=== PATIENT | female | born 1965 | race African-American/Black ===

== ENCOUNTER → 2016-02-25 | Outpatient (CLI) | payer MEDICARE, MEDICAID ==
[~2016-02-25] MED LIST: ADIPEX-P37.5 MG PO; CEPHALEXIN500 M1 PO; COZAAR 50MG50 MG/TAB PO; CYMBALTA 60MG60 MG PO; DESYREL 100MG100 MG PO; DESYREL DIVIDO150 M1 PO; HCTZ 25MG TAB25 MG PO; HYZAAR 50-12.1 UDTAB PO; KLONOPIN 0.5MG0.5 MG PO; LAMICTAL 100MG100 MG PO; LORTAB 7.5/5001 TAB PO; MICROZIDE12.5 MG PO; MULTIPLE VITAMI1 CAP PO; NO HOME MEDICATIONS; NORCO 325 MG-51 TAB PO; NORCO 325 MG-7.1 TAB PO; PERCOCET 325 MG1 TA2 PO; PERCOCET 325 MG1 TAB PO; PHENERGAN 25 TA25 MG PO; PROBIOTIC FORMU1 CAP PO; PROMETHAZINE12.5 M5 PO; REMERON 15M15 MG/TA1 PO; ULTRAM 50MG TAB50 MG PO; VICTOZA6 MG/ML SQ; VIT B 12; VITAMIN D31000 I1 PO; WELLBUTRIN XL150 MG PO; WELLBUTRIN XL300 M1 PO; ZANAFLEX CAPSULE4 MG PO; ZOFRAN 4MG T4 MG/TAB PO
== END ==
LOC: BHSO 10:18
DX: F06.32 Mood disorder due to known physiological condition with major depressive-like episode (principal)

== ENCOUNTER 2016-04-07 10:30 | Outpatient (RCR) | payer MEDICARE, MEDICAID ==
[~2016-04-07 10:30] MED LIST changes: -VICTOZA6 MG/ML SQ
== END 2016-04-12 08:24 | disposition home or self-care (01) ==
LOC: WSPT 10:30
DX: M25.562 Pain in left knee (principal); M25.561 Pain in right knee; M25.572 Pain in left ankle and joints of left foot; M25.571 Pain in right ankle and joints of right foot
CPT/HCPCS: G8978-GP; G8979-GP; G8980-GP

== ENCOUNTER → 2016-05-03 | Outpatient (CLI) | payer MEDICARE, MEDICAID ==
[~2016-05-03] MED LIST changes: +VICTOZA6 MG/ML SQ
== END ==
LOC: BHSO 10:30
DX: F06.32 Mood disorder due to known physiological condition with major depressive-like episode (principal)

== ENCOUNTER 2016-05-18 14:30 | Emergency (ER) | payer MEDICARE, MEDICAID ==
[~2016-05-18] VITALS: Ht 177.8 cm; Wt 110.0 kg
[~2016-05-18 14:30] MED LIST changes: -VICTOZA6 MG/ML SQ
[2016-05-18 14:32] VITALS: TEMP 98.8
[2016-05-18] MEDS ORDERED: VICTOZA6 MG/ML SQ (14:38)
[2016-05-18 17:12] VITALS: BP 127/86; PULSE 89
== END 2016-05-18 17:15 | disposition home or self-care (01) ==
LOC: COL.ER 14:30
DX: M25.562 Pain in left knee (principal); M54.5 Low back pain; W18.2XXA Fall in (into) shower or empty bathtub, initial encounter; Y92.002 Bathroom of unspecified non-institutional (private) residence as the place of occurrence of the external cause; I10 Essential (primary) hypertension; E11.9 Type 2 diabetes mellitus without complications; Z79.84 Long term (current) use of oral hypoglycemic drugs
CPT/HCPCS: J1170; J3360

== ENCOUNTER → 2016-06-20 | Outpatient (CLI) | payer MEDICARE, MEDICAID ==
[~2016-06-20] MED LIST changes: +VICTOZA6 MG/ML SQ
== END ==
LOC: COL.RAD 13:08
DX: S46.812A Strain of other muscles, fascia and tendons at shoulder and upper arm level, left arm, initial encounter (principal); M75.82 Other shoulder lesions, left shoulder; M77.8 Other enthesopathies, not elsewhere classified; S43.431A Superior glenoid labrum lesion of right shoulder, initial encounter
CPT/HCPCS: A9585; Q9967

== ENCOUNTER → 2016-08-02 | Outpatient (CLI) | payer MEDICARE, MEDICAID | LOC: BHSO 11:02 | DX: F06.32 Mood disorder due to known physiological condition with major depressive-like episode (principal) ==

== ENCOUNTER → 2016-09-01 | Outpatient (CLI) | payer MEDICARE, MEDICAID | LOC: BHSO 14:48 | DX: F06.32 Mood disorder due to known physiological condition with major depressive-like episode (principal) ==

== ENCOUNTER → 2016-10-06 | Outpatient (RCR) | payer MEDICARE, MEDICAID | END | disposition home or self-care (01) | LOC: MKS.ESL.PT | DX: Z01.818 Encounter for other preprocedural examination (principal); M25.512 Pain in left shoulder | CPT/HCPCS: G0283-GP; G8982-GP; G8984-GP; G8985-GP; G8986-GP ==

== ENCOUNTER → 2016-11-09 | Outpatient (CLI) | payer MEDICARE, MEDICAID | LOC: BHSO 13:39 | DX: F06.32 Mood disorder due to known physiological condition with major depressive-like episode (principal) ==

== ENCOUNTER 2017-01-02 14:00 | Outpatient (RCR) | payer MEDICARE, MEDICAID | END 2017-01-10 | LOC: MKS.ESL.PT | DX: Z47.89 Encounter for other orthopedic aftercare (principal); M75.22 Bicipital tendinitis, left shoulder; Z98.890 Other specified postprocedural states | CPT/HCPCS: G8984-GP; G8985-GP ==

== ENCOUNTER → 2017-01-18 | Outpatient (CLI) | payer MEDICARE, MEDICAID | LOC: BHSO 13:35 | DX: F06.32 Mood disorder due to known physiological condition with major depressive-like episode (principal) ==

== ENCOUNTER 2017-01-25 13:15 | Outpatient (RCR) | payer MEDICARE, MEDICAID ==
[2017-02-02] MEDS ORDERED: OCUFLOX OPHTH DR5 ML OU (12:23)
[2017-02-02] MEDS ORDERED: AMOXICILLIN 8751 TAB PO (12:23)
[2017-02-02] MEDS ORDERED: BUSPAR5 MG PO (12:39)
[2017-02-02] MEDS ORDERED: KLONOPIN 1MG1 MG PO (12:40)
== END 2017-04-11 | disposition home or self-care (01) ==
LOC: MKS.ESL.PT
DX: Z51.89 Encounter for other specified aftercare (principal)
CPT/HCPCS: G8985-GP; G8986-GP

== ENCOUNTER 2017-02-02 11:41 | Emergency (ER) | payer MEDICARE, MEDICAID ==
[~2017-02-02] VITALS: Ht 177.8 cm; Wt 110.5 kg
[2017-02-02 11:43] VITALS: BP 169/99; TEMP 98.4
[2017-02-02] MEDS ORDERED: OCUFLOX OPHTH DR5 ML OU (12:23)
[2017-02-02] MEDS ORDERED: AMOXICILLIN 8751 TAB PO (12:23)
[2017-02-02] MEDS ORDERED: BUSPAR5 MG PO (12:39)
[2017-02-02] MEDS ORDERED: KLONOPIN 1MG1 MG PO (12:40)
[2017-02-02 12:42] VITALS: PULSE 83
== END 2017-02-02 12:43 | disposition home or self-care (01) ==
LOC: COL.ER 11:41
DX: J32.9 Chronic sinusitis, unspecified (principal); H10.9 Unspecified conjunctivitis; E11.9 Type 2 diabetes mellitus without complications; I10 Essential (primary) hypertension; M54.9 Dorsalgia, unspecified; M25.561 Pain in right knee; M25.562 Pain in left knee; G89.29 Other chronic pain; Z79.84 Long term (current) use of oral hypoglycemic drugs

== ENCOUNTER 2017-04-24 15:35 | Emergency (ER) | payer MEDICARE, MEDICAID ==
[~2017-04-24] VITALS: Ht 177.8 cm; Wt 108.6 kg
[~2017-04-24 15:35] MED LIST changes: +AMOXICILLIN 8751 TAB PO; +BUSPAR5 MG PO; +KLONOPIN 1MG1 MG PO; +OCUFLOX OPHTH DR5 ML OU
[2017-04-24 15:40] VITALS: BP 135/85; TEMP 97.9
[2017-04-24] MEDS ORDERED: TRULICITY1.5 MG/0.5 SQ (15:53)
[2017-04-24] MEDS ORDERED: NEURONTIN400 MG/CAP PO (15:56)
[2017-04-24] MEDS ORDERED: NORCO 325 MG-7.1 TAB PO (15:56)
[2017-04-24] MEDS ORDERED: B-121000 MCG PO (15:57)
[2017-04-24] MEDS ORDERED: FLEXERIL 1010 MG/TAB PO ×2 (16:30)
[2017-04-24 16:48] VITALS: PULSE 61
== END 2017-04-24 16:49 | disposition home or self-care (01) ==
LOC: COL.ER 15:35
DX: G89.29 Other chronic pain (principal); M54.5 Low back pain; I10 Essential (primary) hypertension; E11.9 Type 2 diabetes mellitus without complications; F31.9 Bipolar disorder, unspecified; F17.210 Nicotine dependence, cigarettes, uncomplicated

== ENCOUNTER → 2017-05-18 | Outpatient (CLI) | payer MEDICARE, MEDICAID ==
[~2017-05-18] MED LIST changes: +B-121000 MCG PO; +FLEXERIL 1010 MG/TAB PO; +NEURONTIN400 MG/CAP PO; +TRULICITY1.5 MG/0.5 SQ
== END ==
LOC: BHSO 09:00
DX: F06.32 Mood disorder due to known physiological condition with major depressive-like episode (principal)
CPT/HCPCS: G0463

== ENCOUNTER 2017-06-21 16:00 | Outpatient (RCR) | payer MEDICARE, MEDICAID | END 2017-06-22 09:03 | disposition home or self-care (01) | LOC: MKS.ESL.PT 16:00 | DX: M19.90 Unspecified osteoarthritis, unspecified site (principal); M54.5 Low back pain; G89.4 Chronic pain syndrome; M25.551 Pain in right hip; M25.552 Pain in left hip | CPT/HCPCS: G8978-GP; G8979-GP; G8980-GP ==

== ENCOUNTER → 2017-07-04 | Outpatient (CLI) | payer MEDICARE, MEDICAID | LOC: BHSO 10:45 | DX: F06.32 Mood disorder due to known physiological condition with major depressive-like episode (principal) | CPT/HCPCS: G0463 ==

== ENCOUNTER → 2017-09-13 | Outpatient (CLI) | payer MEDICARE, MEDICAID | LOC: BHSO 13:02 | DX: F31.81 Bipolar II disorder (principal) | CPT/HCPCS: G0463 ==

== ENCOUNTER → 2017-09-26 | Outpatient (CLI) | payer MEDICARE, MEDICAID | LOC: BHSO 11:26 | DX: F06.32 Mood disorder due to known physiological condition with major depressive-like episode (principal) | CPT/HCPCS: G0463 ==

== ENCOUNTER → 2017-11-08 | Outpatient (CLI) | payer MEDICARE, MEDICAID ==
[~2017-11-08] MED LIST changes: +ALDACTONE 25MG25 M1 PO; +CALTRATE-600 W600 MG PO; +FLONASEALLERGY NS; +IRON TABLETS325 MG PO; +MYRBETR50MG PO; +SINGULAIR 110 MG/TAB PO; +TOPAMAX50 MG PO
== END ==
LOC: BHSO 10:54
DX: F06.32 Mood disorder due to known physiological condition with major depressive-like episode (principal)
CPT/HCPCS: G0463

== ENCOUNTER → 2017-11-10 | Outpatient (CLI) | payer MEDICARE, MEDICAID ==
[~2017-11-10] MED LIST changes: +GLUCOPHAGE XR500 M1 PO; -MICROZIDE12.5 MG PO
== END ==
LOC: MC.RAD 09:00
DX: Z12.31 Encounter for screening mammogram for malignant neoplasm of breast (principal)

== ENCOUNTER → 2017-11-14 | Outpatient (CLI) | payer MEDICARE, MEDICAID ==
[~2017-11-14] VITALS: Ht 172.7 cm; Wt 114.8 kg
[2017-11-14 14:18] VITALS: BP 120/80; PULSE 72
== END ==
LOC: LIGHT
DX: M15.9 Polyosteoarthritis, unspecified (principal); I10 Essential (primary) hypertension; F32.9 Major depressive disorder, single episode, unspecified; E66.9 Obesity, unspecified; Z68.38 Body mass index [BMI] 38.0-38.9, adult; Z71.3 Dietary counseling and surveillance
CPT/HCPCS: G0463

== ENCOUNTER 2017-11-20 09:15 | Outpatient (RCR) | payer MEDICARE, MEDICAID | END 2017-11-20 13:46 | disposition home or self-care (01) | LOC: MKS.ESL.PT 09:15 | DX: G89.4 Chronic pain syndrome (principal); M54.42 Lumbago with sciatica, left side; M25.552 Pain in left hip | CPT/HCPCS: G8978-GP; G8979-GP; G8980-GP ==

== ENCOUNTER → 2017-11-20 | Outpatient (CLI) | payer MEDICARE, MEDICAID | LOC: LIGHT 12:59 | DX: F32.9 Major depressive disorder, single episode, unspecified (principal); I10 Essential (primary) hypertension; M15.9 Polyosteoarthritis, unspecified; E66.9 Obesity, unspecified; Z68.38 Body mass index [BMI] 38.0-38.9, adult; Z71.3 Dietary counseling and surveillance ==

== ENCOUNTER → 2017-12-11 | Outpatient (CLI) | payer MEDICARE, MEDICAID | LOC: LIGHT 12-05 11:24 | DX: F32.9 Major depressive disorder, single episode, unspecified (principal); I10 Essential (primary) hypertension; M16.9 Osteoarthritis of hip, unspecified; E66.9 Obesity, unspecified; Z68.38 Body mass index [BMI] 38.0-38.9, adult; Z71.3 Dietary counseling and surveillance ==

== ENCOUNTER → 2017-12-19 | Outpatient (CLI) | payer MEDICARE, MEDICAID ==
[~2017-12-19] VITALS: Ht 172.7 cm; Wt 121.1 kg
[2017-12-19 15:51] VITALS: BP 120/84; PULSE 92
== END ==
LOC: LIGHT 09:19
DX: F32.9 Major depressive disorder, single episode, unspecified (principal); I10 Essential (primary) hypertension; M15.9 Polyosteoarthritis, unspecified; E66.9 Obesity, unspecified; Z68.41 Body mass index [BMI] 40.0-44.9, adult; Z71.3 Dietary counseling and surveillance
CPT/HCPCS: G0463

== ENCOUNTER → 2018-01-16 | Outpatient (CLI) | payer MEDICARE, MEDICAID ==
[~2018-01-16] VITALS: Ht 172.7 cm; Wt 122.5 kg
[2018-01-16 14:32] VITALS: BP 140/86; PULSE 80
== END ==
LOC: LIGHT 14:27
DX: F32.9 Major depressive disorder, single episode, unspecified (principal); I10 Essential (primary) hypertension; M15.9 Polyosteoarthritis, unspecified; E66.9 Obesity, unspecified; Z68.41 Body mass index [BMI] 40.0-44.9, adult; Z71.3 Dietary counseling and surveillance
CPT/HCPCS: G0463

== ENCOUNTER → 2018-02-05 | Outpatient (CLI) | payer MEDICARE, MEDICAID | LOC: BHSO 10:28 | DX: F06.32 Mood disorder due to known physiological condition with major depressive-like episode (principal) | CPT/HCPCS: G0463 ==

== ENCOUNTER → 2018-04-04 | Outpatient (CLI) | payer MEDICARE, MEDICAID | LOC: BHSO 13:09 | DX: F06.32 Mood disorder due to known physiological condition with major depressive-like episode (principal) | CPT/HCPCS: G0463 ==

== ENCOUNTER → 2018-04-23 | Outpatient (CLI) | payer MEDICARE, MEDICAID | LOC: COL.RAD 10:33 | DX: K76.0 Fatty (change of) liver, not elsewhere classified (principal); R63.5 Abnormal weight gain; Z98.84 Bariatric surgery status | CPT/HCPCS: Q9967 ==

== ENCOUNTER → 2018-05-31 | Outpatient (CLI) | payer MEDICARE, MEDICAID ==
[~2018-05-31] MED LIST changes: +OZEMPIC0.25 MG/0. SQ
== END ==
LOC: BHSO 13:50
DX: F06.32 Mood disorder due to known physiological condition with major depressive-like episode (principal)
CPT/HCPCS: G0463

== ENCOUNTER → 2018-07-05 | Outpatient (CLI) | payer MEDICARE, MEDICAID | LOC: BHSO 14:14 | DX: F06.32 Mood disorder due to known physiological condition with major depressive-like episode (principal) | CPT/HCPCS: G0463 ==

== ENCOUNTER → 2018-09-11 | Outpatient (CLI) | payer MEDICARE, MEDICAID ==
[~2018-09-11] VITALS: Ht 172.7 cm; Wt 120.9 kg
[2018-09-11 15:00] VITALS: BP 126/86; PULSE 72
== END ==
LOC: LIGHT 14:01
DX: F32.9 Major depressive disorder, single episode, unspecified (principal); I10 Essential (primary) hypertension; M15.9 Polyosteoarthritis, unspecified; E66.9 Obesity, unspecified; Z68.41 Body mass index [BMI] 40.0-44.9, adult; Z71.3 Dietary counseling and surveillance
CPT/HCPCS: G0463

== ENCOUNTER → 2018-10-01 | Outpatient (CLI) | payer MEDICARE, MEDICAID | LOC: BHSO 14:16 | DX: F06.32 Mood disorder due to known physiological condition with major depressive-like episode (principal) | CPT/HCPCS: G0463 ==

== ENCOUNTER → 2019-01-07 | Outpatient (CLI) | payer MEDICARE, MEDICAID | LOC: BHSO 13:09 | DX: F06.32 Mood disorder due to known physiological condition with major depressive-like episode (principal) | CPT/HCPCS: G0463 ==

== ENCOUNTER 2019-01-30 14:11 | Emergency (ER) | payer MEDICARE, MEDICAID ==
[~2019-01-30] VITALS: Ht 172.7 cm; Wt 118.2 kg
[2019-01-30 14:29] VITALS: BP 145/92
[2019-01-30 15:51] VITALS: PULSE 103
== END 2019-01-30 15:51 | disposition home or self-care (01) ==
LOC: COL.ER 14:11
DX: S61.216A Laceration without foreign body of right little finger without damage to nail, initial encounter (principal); Z23 Encounter for immunization; Z79.84 Long term (current) use of oral hypoglycemic drugs; W26.8XXA Contact with other sharp object(s), not elsewhere classified, initial encounter; Y92.009 Unspecified place in unspecified non-institutional (private) residence as the place of occurrence of the external cause

== ENCOUNTER → 2019-02-09 | Outpatient (CLI) | payer MEDICARE, MEDICAID ==
[2019-02-09 17:23] VITALS: BP 135/89; PULSE 91; TEMP 98.4
== END ==
LOC: COL.ER 17:13
DX: S61.216D Laceration without foreign body of right little finger without damage to nail, subsequent encounter (principal); X58.XXXD Exposure to other specified factors, subsequent encounter

== ENCOUNTER → 2019-03-12 | Outpatient (CLI) | payer MEDICARE, MEDICAID ==
[~2019-03-12] VITALS: Ht 172.7 cm; Wt 116.3 kg
[2019-03-12 14:35] VITALS: BP 114/70; PULSE 96
== END ==
LOC: LIGHT 13:51
DX: Z68.39 Body mass index [BMI] 39.0-39.9, adult (principal); I10 Essential (primary) hypertension; F32.9 Major depressive disorder, single episode, unspecified
CPT/HCPCS: G0463

== ENCOUNTER → 2019-04-08 | Outpatient (CLI) | payer MEDICARE, MEDICAID | LOC: BHSO 13:16 | DX: F06.32 Mood disorder due to known physiological condition with major depressive-like episode (principal) | CPT/HCPCS: G0463 ==

== ENCOUNTER 2019-04-25 10:30 | Outpatient (RCR) | payer MEDICARE, MEDICAID | END 2019-05-01 | disposition home or self-care (01) | LOC: WSC | DX: M17.0 Bilateral primary osteoarthritis of knee (principal); E66.9 Obesity, unspecified ==

== ENCOUNTER → 2019-06-27 | Outpatient (CLI) | payer MEDICARE, MEDICAID | LOC: BHSO 10:26 | DX: F41.1 Generalized anxiety disorder (principal) | CPT/HCPCS: G0463 ==

== ENCOUNTER → 2019-07-16 | Outpatient (CLI) | payer MEDICARE, MEDICAID ==
[~2019-07-16] VITALS: Ht 172.7 cm; Wt 120.0 kg
[~2019-07-16] MED LIST changes: -OZEMPIC0.25 MG/0. SQ; +TRULICITY0.75 MG/0. SQ
[2019-07-16 13:13] VITALS: BP 112/84; PULSE 88
== END ==
LOC: LIGHT 05-14 09:35
DX: E66.01 Morbid (severe) obesity due to excess calories (principal); Z68.41 Body mass index [BMI] 40.0-44.9, adult; I10 Essential (primary) hypertension; E11.9 Type 2 diabetes mellitus without complications
CPT/HCPCS: G0463

== ENCOUNTER → 2019-08-13 | Outpatient (CLI) | payer MEDICARE, MEDICAID ==
[~2019-08-13] VITALS: Ht 172.7 cm; Wt 120.7 kg
[2019-08-13 14:43] VITALS: BP 110/66; PULSE 80
== END ==
LOC: LIGHT 11:04
DX: E66.01 Morbid (severe) obesity due to excess calories (principal); Z68.41 Body mass index [BMI] 40.0-44.9, adult; I10 Essential (primary) hypertension; Z98.84 Bariatric surgery status
CPT/HCPCS: G0463

== ENCOUNTER → 2019-10-08 | Outpatient (CLI) | payer MEDICARE, MEDICAID ==
[~2019-10-08] VITALS: Ht 172.7 cm; Wt 117.7 kg
[~2019-10-08] MED LIST changes: +ADIPEX-P37.5 M2 PO
[2019-10-08 14:05] VITALS: BP 110/80; PULSE 100
== END ==
LOC: LIGHT 09-10 11:52
DX: E66.8 Other obesity (principal); Z68.38 Body mass index [BMI] 38.0-38.9, adult; M54.5 Low back pain
CPT/HCPCS: G0463

== ENCOUNTER → 2019-11-20 | Outpatient (CLI) | payer MEDICARE, MEDICAID | LOC: BHSO 12:59 | DX: F06.32 Mood disorder due to known physiological condition with major depressive-like episode (principal) | CPT/HCPCS: G0463 ==

== ENCOUNTER → 2019-12-10 | Outpatient (CLI) | payer MEDICARE, MEDICAID ==
[~2019-12-10] VITALS: Ht 172.7 cm; Wt 116.6 kg
[2019-12-10 13:31] VITALS: BP 110/78; PULSE 82
== END ==
LOC: LIGHT 13:24
DX: E66.01 Morbid (severe) obesity due to excess calories (principal); Z68.39 Body mass index [BMI] 39.0-39.9, adult; I10 Essential (primary) hypertension; F32.9 Major depressive disorder, single episode, unspecified
CPT/HCPCS: G0463

== ENCOUNTER → 2021-05-12 | Outpatient (CLI) | payer MEDICARE, MEDICAID | LOC: MHCPAIN 14:46 | DX: M47.816 Spondylosis without myelopathy or radiculopathy, lumbar region (principal); M54.16 Radiculopathy, lumbar region; M25.551 Pain in right hip; M25.552 Pain in left hip; M53.3 Sacrococcygeal disorders, not elsewhere classified | CPT/HCPCS: G0463 ==

== ENCOUNTER → 2021-05-12 | Outpatient (CLI) | payer MEDICARE, MEDICAID | LOC: COL.RAD 15:43 | DX: M41.86 Other forms of scoliosis, lumbar region (principal); M51.36 Other intervertebral disc degeneration, lumbar region; M43.16 Spondylolisthesis, lumbar region ==

== ENCOUNTER → 2021-05-27 | Outpatient (CLI) | payer MEDICARE, MEDICAID | LOC: MHCPAIN 10:19 | DX: M47.816 Spondylosis without myelopathy or radiculopathy, lumbar region (principal); M53.3 Sacrococcygeal disorders, not elsewhere classified; M54.16 Radiculopathy, lumbar region | CPT/HCPCS: J1100; Q9967 ==

== ENCOUNTER → 2021-06-08 | Outpatient (CLI) | payer MEDICARE, MEDICAID | LOC: MHCPAIN 13:20 | DX: M43.16 Spondylolisthesis, lumbar region (principal); M47.816 Spondylosis without myelopathy or radiculopathy, lumbar region; M16.0 Bilateral primary osteoarthritis of hip | CPT/HCPCS: G0463 ==

== ENCOUNTER → 2021-06-21 | Outpatient (CLI) | payer MEDICARE, MEDICAID | LOC: MHCPAIN 12:20 | DX: M47.816 Spondylosis without myelopathy or radiculopathy, lumbar region (principal); M54.50 Low back pain, unspecified; M53.3 Sacrococcygeal disorders, not elsewhere classified | CPT/HCPCS: J1040; Q9967 ==

== ENCOUNTER → 2021-07-06 | Outpatient (CLI) | payer MEDICARE, MEDICAID | LOC: MHCPAIN 10:22 | DX: M47.816 Spondylosis without myelopathy or radiculopathy, lumbar region (principal); M43.16 Spondylolisthesis, lumbar region; M16.0 Bilateral primary osteoarthritis of hip; M48.061 Spinal stenosis, lumbar region without neurogenic claudication; M54.50 Low back pain, unspecified | CPT/HCPCS: G0463 ==

== ENCOUNTER → 2021-08-03 | Outpatient (CLI) | payer MEDICARE, MEDICAID | LOC: MHCPAIN 10:33 | DX: M47.816 Spondylosis without myelopathy or radiculopathy, lumbar region (principal); M54.50 Low back pain, unspecified; M41.86 Other forms of scoliosis, lumbar region | CPT/HCPCS: G0463 ==

== ENCOUNTER 2021-08-31 08:15 | Outpatient (RCR) | payer MEDICARE, MEDICAID | END 2021-09-05 | disposition home or self-care (01) | LOC: WSC | DX: M54.50 Low back pain, unspecified (principal) ==

== ENCOUNTER → 2021-09-14 | Outpatient (CLI) | payer MEDICARE, MEDICAID | LOC: MHCPAIN 10:33 | DX: M54.50 Low back pain, unspecified (principal); M43.16 Spondylolisthesis, lumbar region; M47.816 Spondylosis without myelopathy or radiculopathy, lumbar region; M41.80 Other forms of scoliosis, site unspecified ==

== ENCOUNTER 2021-10-05 09:00 | Outpatient (RCR) | payer MEDICARE, MEDICAID ==
[~2021-10-05 09:00] MED LIST changes: -MULTIPLE VITAMI1 CAP PO; +MULTIPLE VITAMI1 TA5 PO
[2021-10-29] MEDS ORDERED: ULTRAM 50MG TAB50 MG PO (06:09)
[2021-10-29] MEDS ORDERED: NORCO 325 MG-7.1 TAB PO (06:32)
[2021-10-29] MEDS ORDERED: ADIPEX-P37.5 MG PO (06:33)
[2021-10-29] MEDS ORDERED: NEURONTIN600 MG/TAB PO (06:35)
[2021-10-29] MEDS ORDERED: BELSOMRA20 MG PO (06:37)
[2021-10-29] MEDS ORDERED: FLEXERIL 1010 MG/TAB PO (06:38)
[2021-10-29] MEDS ORDERED: BRINTELLIX20 PO (06:39)
[2021-10-29] MEDS ORDERED: CHANTIX 1MG1 MG PO (06:40)
[2021-10-29] MEDS ORDERED: RISPERDAL4 MG PO (06:41)
[2021-10-29] MEDS ORDERED: KLONOPIN 0.5MG0.5 MG PO (06:42)
[2021-10-29] MEDS ORDERED: TOPAMAX 25MG25 M1 PO (06:43)
[2021-10-29] MEDS ORDERED: VITAMIN B COMPL1 SGL PO (06:44)
[2021-10-29] MEDS ORDERED: RYBELSUS14 MG PO (06:45)
== END 2021-10-06 | disposition home or self-care (01) ==
LOC: WSPT
DX: M54.50 Low back pain, unspecified (principal)

== ENCOUNTER → 2021-10-26 | Outpatient (CLI) | payer MEDICARE, MEDICAID ==
[~2021-10-26] MED LIST changes: +BELSOMRA20 MG PO; +BRINTELLIX20 PO; +CHANTIX 1MG1 MG PO; +NEURONTIN600 MG/TAB PO; +RISPERDAL4 MG PO; +RYBELSUS14 MG PO; +TOPAMAX 25MG25 M1 PO; +VITAMIN B COMPL1 SGL PO
== END ==
LOC: MHCPAIN 10:47
DX: M54.59 Other low back pain (principal); M47.816 Spondylosis without myelopathy or radiculopathy, lumbar region; M51.36 Other intervertebral disc degeneration, lumbar region; M16.0 Bilateral primary osteoarthritis of hip
CPT/HCPCS: G0463

== ENCOUNTER 2022-03-28 05:21 | Day surgery (SDC) | payer MEDICARE, MEDICAID ==
[~2022-03-28] VITALS: Ht 177.8 cm; Wt 109.1 kg
[2022-03-28] VITALS (7 sets, daily range): BP systolic 103–119; BP diastolic 71–82; PULSE 89–95; TEMP 98–98.1
--- NOTE | 2022-03-28 06:31 | NUR ---
Pts medication list was "finalized in discharge" prior to being able to update the home medication list. Pt is no longer taking tramadol. And rosuvastatin 20mg once weekly on Monday, should be added as home medication.
--- NOTE | 2022-03-28 06:46 | NUR ---
Pt taken via cart by ALVARO Bauman at this time to PACU to place a block prior to surgery.
--- NOTE | 2022-03-28 07:45 | NUR ---
Pt returned via cart to [facility] from OR. Pt drowsy but easily arousable and appropriate. VSS-see flowsheet. LLE elevated and dressing CDI. Surgical shoe remains in place. Toes warm, Cap refill WNL. Side rails up. Lights dimmed, pt requested to rest. Denies needs, pain or concerns at this time.
--- NOTE | 2022-03-28 09:35 | NUR ---
Pt meets discharge criteria. IV removed, pressure dressing applied. DC teaching completed, pt verbalized understanding. Take by staff via wheelchair to private vehicle for son, Brynn, to take pt home.
== END 2022-03-28 09:35 | disposition home or self-care (01) ==
LOC: SDCO 05:21
DX: T84.84XA Pain due to internal orthopedic prosthetic devices, implants and grafts, initial encounter (principal); M96.0 Pseudarthrosis after fusion or arthrodesis; E11.9 Type 2 diabetes mellitus without complications; Z79.84 Long term (current) use of oral hypoglycemic drugs; F17.210 Nicotine dependence, cigarettes, uncomplicated
CPT/HCPCS: J0690; J1100; J2250; J2704; J2795

== ENCOUNTER → 2022-04-05 | Outpatient (CLI) | payer MEDICARE, MEDICAID | LOC: MHCPAIN 10:54 | DX: M54.50 Low back pain, unspecified (principal); M54.16 Radiculopathy, lumbar region; M47.816 Spondylosis without myelopathy or radiculopathy, lumbar region | CPT/HCPCS: G0463 ==

== ENCOUNTER → 2022-04-26 | Outpatient (CLI) | payer MEDICARE, MEDICAID | LOC: MHCPAIN 11:27 | DX: M47.817 Spondylosis without myelopathy or radiculopathy, lumbosacral region (principal); M53.3 Sacrococcygeal disorders, not elsewhere classified; M51.36 Other intervertebral disc degeneration, lumbar region | CPT/HCPCS: G0463 ==

== ENCOUNTER → 2022-05-09 | Outpatient (CLI) | payer MEDICARE, MEDICAID | LOC: MHCPAIN 12:52 | DX: M54.50 Low back pain, unspecified (principal); M54.32 Sciatica, left side; M53.3 Sacrococcygeal disorders, not elsewhere classified | CPT/HCPCS: J3301; Q9967 ==

== ENCOUNTER → 2022-11-29 | Outpatient (CLI) | payer MEDICARE, MEDICAID | LOC: MHCPAIN 11:24 | DX: M54.50 Low back pain, unspecified (principal); M51.36 Other intervertebral disc degeneration, lumbar region; M47.816 Spondylosis without myelopathy or radiculopathy, lumbar region; M53.3 Sacrococcygeal disorders, not elsewhere classified | CPT/HCPCS: G0463 ==

== ENCOUNTER → 2023-02-21 | Outpatient (CLI) | payer MEDICARE, MEDICAID | LOC: MHCPAIN 10:34 | DX: M54.50 Low back pain, unspecified (principal); M25.551 Pain in right hip; M70.62 Trochanteric bursitis, left hip; M70.61 Trochanteric bursitis, right hip ==

== ENCOUNTER → 2023-02-27 | Outpatient (CLI) | payer MEDICARE, MEDICAID ==
[~2023-02-27] MED LIST changes: +Iohexol 300 - 10 ML VIAL ONE; +Lidocaine PF 1% (10 MG/ML) 5 ML VIAL ONE; +Triamcinolone 40 MG/ML 1 ML VIAL ONE
== END ==
LOC: MHCPAIN 09:14
DX: M25.551 Pain in right hip (principal)
CPT/HCPCS: J3301; Q9967

== ENCOUNTER → 2023-04-06 | Outpatient (CLI) | payer MEDICARE, MEDICAID ==
[~2023-04-06] MED LIST changes: -Iohexol 300 - 10 ML VIAL ONE; -Lidocaine PF 1% (10 MG/ML) 5 ML VIAL ONE; -Triamcinolone 40 MG/ML 1 ML VIAL ONE
== END ==
LOC: MHCPAIN 14:30
DX: M54.50 Low back pain, unspecified (principal); M54.16 Radiculopathy, lumbar region; M25.551 Pain in right hip; M25.511 Pain in right shoulder

== ENCOUNTER → 2023-05-16 | Outpatient (CLI) | payer MEDICARE, MEDICAID | LOC: MHCPAIN 09:55 | DX: M54.50 Low back pain, unspecified (principal); M54.16 Radiculopathy, lumbar region | CPT/HCPCS: G0463 ==

== ENCOUNTER → 2023-06-01 | Outpatient (CLI) | payer MEDICARE, MEDICAID ==
[~2023-06-01] MED LIST changes: +Iohexol 300 - 10 ML VIAL ONE; +Lidocaine PF 2% (20 MG/ML) 2 ML VIAL ONE
== END ==
LOC: MHCPAIN 09:54
DX: M54.16 Radiculopathy, lumbar region (principal)
CPT/HCPCS: J1100; Q9967

== ENCOUNTER 2023-07-04 09:00 | Outpatient (RCR) | payer MEDICARE, MEDICAID ==
[~2023-07-04 09:00] MED LIST changes: -Iohexol 300 - 10 ML VIAL ONE; -Lidocaine PF 2% (20 MG/ML) 2 ML VIAL ONE
== END 2023-07-07 | disposition home or self-care (01) ==
LOC: WSC → WSPT 09:00
DX: M54.16 Radiculopathy, lumbar region (principal)

== ENCOUNTER → 2023-07-24 | Outpatient (CLI) | payer MEDICARE, MEDICAID | LOC: MHCPAIN 12:47 | DX: M54.17 Radiculopathy, lumbosacral region (principal) ==

== ENCOUNTER 2024-01-04 02:54 | Emergency (ER) | payer MEDICARE, MEDICAID ==
[~2024-01-04] VITALS: Ht 160 cm; Wt 98.0 kg
[2024-01-04 02:54] VITALS: BP 123/29; PULSE 120; TEMP 97.2
[~2024-01-04 02:54] MED LIST changes: +BACTRIM DS 8001 TAB PO
[2024-01-04] MEDS ORDERED: EPINEPHrine 1 MG/10 ML (1:10,000) SYRINGE IV PRN (02:55)
[2024-01-04] MEDS ORDERED: EPINEPHrine 2 MG in D5W 100 ML IV ONE (03:15)
[2024-01-04 03:27] LABS: MEAN CELL VOLUME 95 fl (80.0-100.0); MEAN CORPUSCULAR HEMOGLOBIN 28 pg (27-31); MEAN CORPUSCULAR HGB CONC 29 g/dl (33.0-37.0); MEAN PLATELET VOLUME 10.7 fl (7.4-10.4); PLATELET COUNT 154 K/mm3 (130-400); RED BLOOD COUNT 3.59 M/mm3 (4.10-5.30); REDCELL DISTRIBUTION WIDTH-CV 15.5 % (11.5-14.5)
[2024-01-04] MEDS ORDERED: Calcium Chloride 1,000 MG (13.6 mEq)/10 ML SYRINGE IV ONE (03:39)
[2024-01-04 03:40] LABS: ALBUMIN 2.4 g/dL (3.5-5.0); BILIRUBIN,TOTAL 0.2 mg/dL (0.2-1.2); CALCIUM 8.5 mg/dL (8.4-10.2); CREATININE, serum 1.47 mg/dL (0.57-1.11); POTASSIUM 4.5 mEq/L (3.5-4.5); TOTAL PROTEIN 5.5 g/dl (6.2-8.1)
[2024-01-04 03:45] LABS: TROPONIN-I 0.626 ng/mL (0.00-0.033)
[2024-01-04 03:48] LABS: BAND 7 % (0-10); LYMPHOCYTE 48 % (20.0-51.0); METAMYELOCYTE 1 % (0-0); NEUTROPHILS 40 % (42.0-75.2); PLATELET ESTIMATE NORMAL (NORMAL)
[2024-01-04 03:49] LABS: BURR CELLS 1+
--- NOTE | 2024-01-04 05:43 | NUR ---
Data: Scientific Affairs Manager contacted on-call Vegetable Cutter. Patient ; Vegetable Cutter requested for family. Patient's Sister and Son present; another sister on the phone. Assessment: Grieving. Desired prayer. Plan of Care: Vegetable Cutter read Psalm 23 and offered a prayer. Patient's sister will spend more time with Patient's son to support him. She will contact her own Assistant Sales Manager later today or tomorrow. Vegetable Cutter will remain available to support family as needed/requested until they depart the hospital.
== END 2024-01-04 08:00 | disposition expired ==
LOC: COL.ER 03:03
PROVIDERS: Emergency Medicine
DX: I46.9 Cardiac arrest, cause unspecified (principal)
CPT/HCPCS: J0171; J7060